=== PATIENT | female | born 2000 | race Caucasian/White ===

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

== ENCOUNTER 2022-04-24 22:49 | Emergency (ER) | payer BC | END 2022-04-25 00:35 | disposition home or self-care (01) | LOC: JD.ED 22:49 | DX: N39.0 Urinary tract infection, site not specified (principal) | CPT/HCPCS: 81001; 87086; 87088; 87186; 99282; 99283 ==